=== PATIENT | male | born 1990 ===

== ENCOUNTER 2017-03-17 12:36 | Emergency (ER) | payer MEDICAID ==
[2017-03-17 12:43] VITALS: BP 132/83; PULSE 73; RESP 17; TEMP 97.8; O2SAT 98
--- NOTE | 2017-03-17 13:06 | ED PDOC ---
HPI: Back Time Seen by Provider: 03/17/17 12:44 Chief Complaint (Nursing): Back Pain Chief Complaint (Provider): Back Pain History Per: Patient History/Exam Limitations: no limitations Onset/Duration Of Symptoms: Days (x2) Additional Complaint(s): Julio Cesar Barahona, 27 year old male presents to the ED on 03/17/17 with back pain. The patient reports as he was lifting a window, he underestimated the weight of the window and injured his back 2 days prior to arrival. He states the pain has improved, but he was unable to attend work today which prompted him to visit the emergency room. He denies any difficulty breathing, no difficulty with bowel movements, no difficulty urinating, no numbness or tingling, no abdominal pain, no nausea, vomiting, or fever, and no numbness to his lower extremities. Past Medical History Reviewed: Historical Data, Nursing Documentation, Vital Signs Vital Signs: Last Vital Signs Temp 97.8 F 03/17/17 12:38 Pulse 73 03/17/17 12:38 Resp 17 03/17/17 12:38 BP 132/83 03/17/17 12:38 Pulse Ox 98 03/17/17 12:38 - Medical History PMH: No Chronic Diseases - Family History Family History: States: Unknown Family Hx - Social History Current smoker - smoking cessation education provided: Yes - Home Medications Home Medications: Ambulatory Orders Medication Instructions Recorded No Known Home Med 03/17/17 - Allergies Allergies/Adverse Reactions: Allergies Allergy/AdvReac Type Severity Reaction Status Date / Time No Known Allergies Allergy Verified 03/17/17 12:38 Review of Systems ROS Statement: Except As Marked, All Systems Reviewed And Found Negative Constitutional: Negative for: Fever Respiratory: Negative for: Shortness of Breath Gastrointestinal: Negative for: Nausea, Vomiting, Abdominal Pain Genitourinary Male: Negative for: Dysuria Musculoskeletal: Positive for: Back Pain Neurological: Negative for: Numbness Physical Exam - Reviewed Nursing Documentation Reviewed: Yes Vital Signs Reviewed: Yes - Physical Exam Appears: Positive for: Non-toxic, No Acute Distress Head Exam: Positive for: ATRAUMATIC, NORMOCEPHALIC Gastrointestinal/Abdominal: Positive for: Normal Exam, Soft. Negative for: Tenderness Back: Positive for: Normal Inspection, Vertebral Tenderness (left paravertebral tenderness; no midline tenderness), Muscle Spasm Extremity: Positive for: Normal ROM (to bilateral hips) Neurologic/Psych: Positive for: Alert, Oriented (x3). Negative for: Motor/ Sensory Deficits (neurovascular sensations intact ) - ECG O2 Sat by Pulse Oximetry: 98 (RA) Pulse Ox Interpretation: Normal Medical Decision Making Medical Decision Making: Initial Impression: When in ER, back pain was under control. Diagnosis includes but not limited to muscle spasm. Initial Plan: * Toradol 30 mg IM Stat * Treatment plan: pt improved in ED. will f./u with pmd. Discussed with patient to apply warm compress and follow up with PMD for possible MRI. Patient agreed to treatment plan and medication administered. Patient is stable for discharge. Scribe Attestation: Documented by Ruthie Melendez, acting as a scribe for Mary Parsons PA-C. Provider Scribe Attestation: All medical record entries made by the Scribe were at my direction and personally dictated by me. I have reviewed the chart and agree that the record accurately reflects my personal performance of the history, physical exam, medical decision making, and the department course for this patient. I have also personally directed, reviewed, and agree with the discharge instructions and disposition. Disposition - Clinical Impression Clinical Impression: Back strain, Back disorder - Patient ED Disposition Is Patient to be Admitted: No - Disposition Referrals: [facility] [Outside] Disposition: Routine/Home Disposition Time: 13:22 Condition: STABLE Additional Instructions: [facility]: [phone] Instructions: Muscle Spasm (ED) Forms: [facility] School/Work Excuse
== END 2017-03-17 14:22 | disposition home or self-care (01) ==
LOC: H.ER 12:36
DX: M62.830 Muscle spasm of back (principal)
CPT/HCPCS: 96372; 99282; J1885

== ENCOUNTER 2017-11-11 12:27 | Emergency (ER) | payer MEDICAID, OTHER ==
[2017-11-11 12:35] VITALS: BP 137/81; PULSE 92; RESP 16; TEMP 98; O2SAT 99
--- NOTE | 2017-11-11 14:20 | ED PDOC ---
HPI: Back Time Seen by Provider: 11/11/17 13:14 Chief Complaint (Nursing): Back Pain Chief Complaint (Provider): Back Pain History Per: Patient History/Exam Limitations: no limitations Onset/Duration Of Symptoms: Days (x5) Current Symptoms Are (Timing): Still Present Additional Complaint(s): 27 year old male with a past medical history of back pain and heroin abuse, who presents to the ED complaining of pain that radiates from his neck to his back x5 days. States the pain is sharp and worse when standing, or getting up from a sitting position. Also states he has felt similar pain many times in the past, but this pain is exacerbated. Denies recent injury. Patient is in an opiate recovery program and has taken no medication for pain. PMD: None provided Past Medical History Reviewed: Historical Data, Nursing Documentation, Vital Signs Vital Signs: Last Vital Signs Temp 98.0 F 11/11/17 12:32 Pulse 92 H 11/11/17 12:32 Resp 16 11/11/17 12:32 BP 137/81 11/11/17 12:32 Pulse Ox 99 11/11/17 12:32 - Medical History PMH: Back Problems - Surgical History Surgical History: No Surg Hx - Family History Family History: States: Unknown Family Hx - Social History Drugs: Opiates (currently in a recovery program) - Home Medications Home Medications: Ambulatory Orders Medication Instructions Recorded Cyclobenzaprine [Cyclobenzaprine 10 mg PO TID #15 tab 11/11/17 HCl] Ibuprofen [Motrin] 600 mg PO Q6 PRN #20 tab 11/11/17 - Allergies Allergies/Adverse Reactions: Allergies Allergy/AdvReac Type Severity Reaction Status Date / Time No Known Allergies Allergy Verified 11/11/17 12:32 Review of Systems ROS Statement: Except As Marked, All Systems Reviewed And Found Negative Musculoskeletal: Positive for: Back Pain Physical Exam - Reviewed Nursing Documentation Reviewed: Yes Vital Signs Reviewed: Yes - Physical Exam Appears: Positive for: Non-toxic, No Acute Distress Head Exam: Positive for: ATRAUMATIC, NORMAL INSPECTION, NORMOCEPHALIC Skin: Positive for: Normal Color, Warm, Dry. Negative for: Rash Eye Exam: Positive for: EOMI, Normal appearance, PERRL Neck: Positive for: Normal, Painless ROM, Supple Cardiovascular/Chest: Positive for: Regular Rate, Rhythm. Negative for: Murmur Respiratory: Positive for: Normal Breath Sounds. Negative for: Respiratory Distress Gastrointestinal/Abdominal: Positive for: Normal Exam, Bowel Sounds, Soft. Negative for: Tenderness Back: Positive for: Other (mild paraspinal tenderness from neck to mid back) Extremity: Positive for: Normal ROM. Negative for: Pedal Edema, Deformity Neurologic/Psych: Positive for: Alert, Oriented (x3) - ECG O2 Sat by Pulse Oximetry: 99 (RA) Pulse Ox Interpretation: Normal Medical Decision Making Medical Decision Making: Time: 13:11 Initial Impression: Acute on chronic back pain. Initial Plan: --Influenza A B --Rapid strep group A --Reevaluation Time: 14:12 Upon provider evaluation patient is medically stable, and requires no further treatment in the ED at this time. Patient will be discharged with Rx for Motrin and Cyclobenzaprine. Counseling was provided and all questions were answered regarding diagnosis and need for follow up with back specialist. There is agreement to discharge plan. Return if symptoms persist or worsen. Scribe Attestation: Documented by Hermes Pretty, acting as a scribe for Rodrigue Parker MD. Provider Scribe Attestation: All medical record entries made by the Scribe were at my direction and personally dictated by me. I have reviewed the chart and agree that the record accurately reflects my personal performance of the history, physical exam, medical decision making, and the department course for this patient. I have also personally directed, reviewed, and agree with the discharge instructions and disposition. Disposition - Clinical Impression Clinical Impression: Back pain - Patient ED Disposition Is Patient to be Admitted: No Counseled Patient/Family Regarding: Diagnosis, Need For Followup, Rx Given - Disposition Referrals: [facility] [Outside] Disposition: Routine/Home Disposition Time: 14:12 Condition: GOOD Additional Instructions: Take your medications as instructed. Follow up with your PCP in 3-5 days. Prescriptions: Cyclobenzaprine [Cyclobenzaprine HCl] 10 mg PO TID #15 tab Ibuprofen [Motrin] 600 mg PO Q6 PRN #20 tab PRN Reason: Pain, Moderate (4-7) Instructions: Back Pain (ED)
== END 2017-11-11 14:33 | disposition home or self-care (01) ==
LOC: H.ER 12:27
DX: M54.9 Dorsalgia, unspecified (principal)

== ENCOUNTER 2017-12-12 21:59 | Emergency (ER) | payer SELFPAY ==
[2017-12-12 22:14] VITALS: BP 130/74; PULSE 96; RESP 16; TEMP 98.4; O2SAT 99
--- NOTE | 2017-12-12 23:18 | ED PDOC ---
HPI: General Adult Time Seen by Provider: 12/12/17 22:15 Chief Complaint (Nursing): Anxiety Chief Complaint (Provider): Anxiety, chest pain History Per: Patient History/Exam Limitations: no limitations Onset/Duration Of Symptoms: Days, Intermittent Episodes Have you had recent travel within the past 21 days to any of the following countries: [place], [place], [place] or [place]?: No Current Symptoms Are (Timing): Better Additional Complaint(s): 27 yo male with no known medical problems presents after an anxiety attack. Pt states this morning he began feeling anxious with chest pain, fast breathing and sweaty palms. Pt states he has had similar in the past. Pt reports symptoms resolving in 30 minutes. Pt states the rest of the day he was tired and did not feel like doing much. PT reports second "attack" this evening, which also resolved. Pt states they were more severe than in the past. Pt reports smoking marijuana in the past to help but is currently in a drug program because he was arrested with marijuana 3 years ago. PT states due to insurance issues he also has not been able to see a psychiatrist. Past Medical History Reviewed: Historical Data, Nursing Documentation, Vital Signs Vital Signs: Last Vital Signs Temp 98.4 F 12/12/17 22:10 Pulse 96 H 12/12/17 22:10 Resp 16 12/12/17 22:10 BP 130/74 12/12/17 22:10 Pulse Ox 99 12/12/17 22:10 - Medical History PMH: Back Problems - Surgical History Surgical History: No Surg Hx - Family History Family History: States: Unknown Family Hx - Living Arrangements Living Arrangements: With Family - Social History Current smoker - smoking cessation education provided: No - Home Medications Home Medications: Ambulatory Orders Medication Instructions Recorded Cyclobenzaprine [Cyclobenzaprine 10 mg PO TID #15 tab 11/11/17 HCl] Ibuprofen [Motrin] 600 mg PO Q6 PRN #20 tab 11/11/17 - Allergies Allergies/Adverse Reactions: Allergies Allergy/AdvReac Type Severity Reaction Status Date / Time No Known Allergies Allergy Verified 11/11/17 12:32 Review of Systems ROS Statement: Except As Marked, All Systems Reviewed And Found Negative Constitutional: Negative for: Fever, Chills Cardiovascular: Positive for: Chest Pain, Palpitations Gastrointestinal: Negative for: Nausea, Vomiting, Abdominal Pain Neurological: Negative for: Weakness, Headache, Dizziness Psych: Positive for: Anxiety. Negative for: Psychosis, Suicidal ideation Physical Exam - Reviewed Nursing Documentation Reviewed: Yes Vital Signs Reviewed: Yes - Physical Exam Appears: Positive for: Well, Non-toxic, No Acute Distress Head Exam: Positive for: ATRAUMATIC, NORMAL INSPECTION, NORMOCEPHALIC Skin: Positive for: Normal Color, Warm, DRY Eye Exam: Positive for: Normal appearance ENT: Positive for: Normal ENT Inspection Neck: Positive for: Normal, Painless ROM Cardiovascular/Chest: Positive for: Regular Rate, Rhythm Respiratory: Positive for: CNT, Normal Breath Sounds Gastrointestinal/Abdominal: Positive for: Normal Exam, Bowel Sounds, Soft Back: Positive for: Normal Inspection Extremity: Positive for: Normal ROM Neurologic/Psych: Positive for: Alert, Oriented - ECG O2 Sat by Pulse Oximetry: 99 Medical Decision Making Medical Decision Making: Normal EKG and CXR. [facility] Crisis evaluation is not needed at current visit. Disposition - Clinical Impression Clinical Impression: Anxiety - Patient ED Disposition Is Patient to be Admitted: No Counseled Patient/Family Regarding: Diagnosis, Need For Followup - Disposition [facility] Disposition: Routine/Home Disposition Time: 23:20 Condition: STABLE Additional Instructions: Appointment: 12/25/17 11:20 am Instructions: Anxiety, Adult (DC)
--- NOTE | 2017-12-13 07:53 | RAD ---
HISTORY: chest pain, anxiety COMPARISON: No prior. TECHNIQUE: Chest PA and lateral FINDINGS: LUNGS: No active pulmonary disease. PLEURA: No significant pleural effusion identified. No pneumothorax apparent. CARDIOVASCULAR: Normal. OSSEOUS STRUCTURES: No significant abnormalities. VISUALIZED UPPER ABDOMEN: Normal. OTHER FINDINGS: None. IMPRESSION: No active disease.
--- NOTE | 2017-12-14 10:34 | CARD ---
APPROVED REPORT EKG Measurement Heart [id number] <Conclusion> Normal sinus rhythm Normal ECG
== END 2017-12-12 23:40 | disposition home or self-care (01) ==
LOC: H.ER 21:59
DX: F41.9 Anxiety disorder, unspecified (principal); R07.89 Other chest pain; F12.90 Cannabis use, unspecified, uncomplicated

== ENCOUNTER 2018-01-06 11:10 | Emergency (ER) | payer MEDICAID ==
[2018-01-06] MEDS ORDERED: Naproxen 500 MG TAB PO ONE ×2 (11:44→11:51)
[2018-01-06] MEDS ORDERED: Naproxen 500 MG TAB PO STA (11:45)
--- NOTE | 2018-01-06 11:45 | ED PDOC ---
HPI: Back Time Seen by Provider: 01/06/18 11:25 Chief Complaint (Nursing): Back Pain Chief Complaint (Provider): Low back pain for 12 hours - Similar in the past History Per: Patient History/Exam Limitations: no limitations Onset/Duration Of Symptoms: Hrs (12) Current Symptoms Are (Timing): Still Present Quality Of Discomfort: Dull, Other (Tight) Severity: Severe Pain Scale Rating Of: 10 Previous Symptoms: Back Pain Associated Symptoms: None Exacerbating Factor(s): Turning, Sitting Additional Complaint(s): 27 yo male with history of previous back pain presents with low back pain which began after moving furniture. PT states that he began having pain lower back bilateral without radiation. PT states that he did not take anything for pain at home but had some relief with warm compress. No numbness/tingling. No bladder or bowel incontinence. Past Medical History Reviewed: Historical Data, Nursing Documentation, Vital Signs Vital Signs: Last Vital Signs Temp 98.1 F 01/06/18 11:36 Pulse 80 01/06/18 11:36 Resp 16 01/06/18 11:36 BP 138/80 01/06/18 11:36 Pulse Ox 99 01/06/18 11:36 - Medical History PMH: Back Problems - Surgical History Surgical History: No Surg Hx - Family History Family History: States: Unknown Family Hx - Living Arrangements Living Arrangements: With Family - Home Medications Home Medications: Ambulatory Orders Medication Instructions Recorded Cyclobenzaprine [Cyclobenzaprine 10 mg PO TID #15 tab 11/11/17 HCl] Ibuprofen [Motrin] 600 mg PO Q6 PRN #20 tab 11/11/17 Cyclobenzaprine [Cyclobenzaprine 10 mg PO Q8H #20 tab 01/06/18 HCl] Naproxen [Naprosyn] 500 mg PO BID PRN #20 tablet 01/06/18 - Allergies Allergies/Adverse Reactions: Allergies Allergy/AdvReac Type Severity Reaction Status Date / Time No Known Allergies Allergy Verified 11/11/17 12:32 Review of Systems ROS Statement: Except As Marked, All Systems Reviewed And Found Negative Constitutional: Negative for: Fever, Chills Genitourinary Male: Negative for: Hematuria Musculoskeletal: Positive for: Back Pain Physical Exam - Reviewed Nursing Documentation Reviewed: Yes Vital Signs Reviewed: Yes - Physical Exam Appears: Positive for: Well, Non-toxic, No Acute Distress Head Exam: Positive for: ATRAUMATIC, NORMAL INSPECTION, NORMOCEPHALIC Skin: Positive for: Normal Color, Warm, DRY Eye Exam: Positive for: Normal appearance ENT: Positive for: Normal ENT Inspection Neck: Positive for: Normal, Painless ROM Cardiovascular/Chest: Positive for: Regular Rate, Rhythm Respiratory: Positive for: Normal Breath Sounds. Negative for: Accessory Muscle Use, Respiratory Distress Back: Positive for: Normal Inspection, Muscle Spasm (Bilateral ). Negative for : Vertebral Tenderness Extremity: Positive for: Normal ROM Neurologic/Psych: Positive for: Alert, Oriented - ECG O2 Sat by Pulse Oximetry: 99 Medical Decision Making Medical Decision Making: Naproxen and flexeril given in ER. Disposition - Clinical Impression Clinical Impression: Low back pain - Patient ED Disposition Is Patient to be Admitted: No Counseled Patient/Family Regarding: Diagnosis, Need For Followup, Rx Given - Disposition Referrals: [facility] [Outside] Disposition: Routine/Home Disposition Time: 11:49 Condition: GOOD Prescriptions: Cyclobenzaprine [Cyclobenzaprine HCl] 10 mg PO Q8H #20 tab Naproxen [Naprosyn] 500 mg PO BID PRN #20 tablet PRN Reason: Pain Instructions: Low Back Pain in Adults Forms: [facility] (Greek)
[2018-01-06 11:47] VITALS: BP 138/80; PULSE 80; RESP 16; TEMP 98.1; O2SAT 99
== END 2018-01-06 13:23 | disposition home or self-care (01) ==
LOC: H.ER 11:10
DX: M54.5 Low back pain (principal)

== ENCOUNTER 2018-01-09 07:24 | Emergency (ER) | payer MEDICAID ==
[2018-01-09 07:31] VITALS: RESP 16
[2018-01-09] MEDS ORDERED: Sodium Chloride 0.9% 1,000 ML IV STA (08:10)
[2018-01-09 08:26] LABS: BASO % 0.4 % (0.0-2.0); EOS # 0.1 K/uL (0.0-0.7); EOS % 1.8 % (0.0-4.0); HEMOGLOBIN 14.9 g/dL (12.0-18.0); LYMPH # 2.5 K/uL (1.0-4.3); LYMPH % 30.5 % (20.0-40.0); MEAN CELL VOLUME 88.5 fl (80.0-94.0); MEAN CORPUSCULAR HEMOGLOBIN 30.3 pg (27.0-31.0); MEAN CORPUSCULAR HGB CONC 34.3 g/dL (33.0-37.0); MONO # 1.2 K/uL (0.0-0.8); MONO % 14.9 % (0.0-10.0); NEUT # 4.3 K/uL (1.8-7.0); NEUT % 52.4 % (50.0-75.0); RBC 4.91 Mil/uL (4.40-5.90); RED CELL DISTRIBUTION WIDTH 12.8 % (11.5-14.5); WHITE BLOOD COUNT 8.1 K/uL (4.8-10.8)
[2018-01-09 08:36] LABS: ALB/GLOB RATIO 1.2 (1.0-2.1); ALBUMIN 4.3 g/dL (3.5-5.0); ALT/SGPT 54 U/L (21-72); AST/SGOT 34 U/L (17-59); BLOOD UREA NITROGEN 12 mg/dl (9-20); CALCIUM 9.4 mg/dL (8.4-10.2); GFR AFRICAN-AMERICAN > 60; GFR NON-AFRICAN AMERICAN > 60; LIPASE 49 U/L (23-300)
--- NOTE | 2018-01-09 09:21 | ED PDOC ---
HPI: Abdomen Time Seen by Provider: 01/09/18 07:38 Chief Complaint (Nursing): Abdominal Pain Chief Complaint (Provider): Abdominal Pain History Per: Patient History/Exam Limitations: no limitations Onset/Duration Of Symptoms: Days (x 1) Current Symptoms Are (Timing): Better Associated Symptoms: Fever, Chills, Nausea, Vomiting, Diarrhea Additional Complaint(s): 27 years old male presents to the emergency department today for evaluation of fever, nausea, vomiting and diarrhea for a day. Patient states he has vomited 3 times last night. He reports he has measured his temperature as 101 degrees and has experienced sweating. He denies any contact with ill people and taking any medications. Patient offers no other medical complaints. PMD: Not provided Past Medical History Reviewed: Historical Data, Nursing Documentation, Vital Signs Vital Signs: Last Vital Signs Temp 98.2 F 01/09/18 07:28 Pulse 81 01/09/18 07:28 Resp 16 01/09/18 07:28 BP 129/79 01/09/18 07:28 Pulse Ox 100 01/09/18 09:35 - Medical History PMH: No Chronic Diseases, Back Problems - Surgical History Surgical History: No Surg Hx - Family History Family History: States: Diabetes (Grandmother) - Social History Current smoker - smoking cessation education provided: Yes (Cigarettes) Alcohol: None Drugs: Denies - Immunization History Hx Tetanus Toxoid Vaccination: No Hx Influenza Vaccination: No Hx Pneumococcal Vaccination: No - Home Medications Home Medications: Ambulatory Orders Medication Instructions Recorded Cyclobenzaprine [Cyclobenzaprine 10 mg PO TID #15 tab 11/11/17 HCl] Ibuprofen [Motrin] 600 mg PO Q6 PRN #20 tab 11/11/17 Cyclobenzaprine [Cyclobenzaprine 10 mg PO Q8H #20 tab 01/06/18 HCl] Naproxen [Naprosyn] 500 mg PO BID PRN #20 tablet 01/06/18 Bismuth Subsalicylate [Pepto 2 tab PO Q3H PRN #30 ctb 01/09/18 Bismol] Ondansetron [Zofran] 4 mg PO Q8H #9 tab 01/09/18 - Allergies Allergies/Adverse Reactions: Allergies Allergy/AdvReac Type Severity Reaction Status Date / Time No Known Allergies Allergy Verified 11/11/17 12:32 Review of Systems ROS Statement: Except As Marked, All Systems Reviewed And Found Negative Constitutional: Positive for: Fever, Chills, Sweats Cardiovascular: Negative for: Chest Pain Respiratory: Negative for: Cough Gastrointestinal: Positive for: Nausea, Vomiting, Diarrhea Genitourinary Male: Negative for: Dysuria Physical Exam - Reviewed Nursing Documentation Reviewed: Yes Vital Signs Reviewed: Yes - Physical Exam Appears: Positive for: Non-toxic, No Acute Distress Head Exam: Positive for: ATRAUMATIC, NORMAL INSPECTION, NORMOCEPHALIC Skin: Positive for: Normal Color Eye Exam: Positive for: Normal appearance ENT: Positive for: Normal ENT Inspection Neck: Positive for: Normal, Supple Cardiovascular/Chest: Positive for: Regular Rate, Rhythm Respiratory: Positive for: Normal Breath Sounds Gastrointestinal/Abdominal: Positive for: Bowel Sounds (Shelia dimensioning) Back: Positive for: Other (Lower back tenderness) Extremity: Positive for: Normal ROM Neurologic/Psych: Positive for: Alert, Oriented (x 3) - Laboratory Results Result Diagrams: 01/09/18 08:19 01/09/18 08:19 - ECG O2 Sat by Pulse Oximetry: 100 (RA) Pulse Ox Interpretation: Normal Medical Decision Making Medical Decision Making: Initial Impression: abdominal pain, nausea, vomiting, diarrhea. Initial Plan: --CMP --Lipase --Urine dipstick --CBC --Na 1,000 ml IV --Pepcid 20 mg IVP --Zofran 4 mg PO Scribe Attestation: Documented by Jocelyn Mckeon acting as a scribe for Crys Scanlon MD. Provider Scribe Attestation: All medical record entries made by the Scribe were at my direction and personally dictated by me. I have reviewed the chart and agree that the record accurately reflects my personal performance of the history, physical exam, medical decision making, and the department course 9.30a - patient is feeling better. No nausea after zofran Disposition - Clinical Impression Clinical Impression: Gastroenteritis - Patient ED Disposition Is Patient to be Admitted: No Doctor Will See Patient In The: Office Counseled Patient/Family Regarding: Diagnosis, Need For Followup, Rx Given - Disposition Referrals: [facility] [Outside] [facility] [Outside] Disposition: Routine/Home Disposition Time: 09:45 Condition: IMPROVED Prescriptions: Bismuth Subsalicylate [Pepto Bismol] 2 tab PO Q3H PRN #30 ctb PRN Reason: Diarrhea Ondansetron [Zofran] 4 mg PO Q8H #9 tab Instructions: Gastroenteritis (ED) Forms: [facility] (Ukrainian) - POA Present On Arrival: None
[2018-01-09 10:34] VITALS: BP 124/74; PULSE 68; TEMP 98.4; O2SAT 98
== END 2018-01-09 10:25 | disposition home or self-care (01) ==
LOC: H.ER 07:24
DX: K52.9 Noninfective gastroenteritis and colitis, unspecified (principal)
CPT/HCPCS: 80053; 83690; 85025; 96361; 96374; 99284; J7040

== ENCOUNTER 2018-01-25 18:48 | Emergency (ER) | payer MEDICAID ==
[2018-01-25 18:59] VITALS: BP 140/81; PULSE 101; RESP 20; TEMP 98.7; O2SAT 99
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
== END 2018-01-25 20:54 | disposition home or self-care (01) ==
LOC: H.ER 18:48
DX: S09.90XA Unspecified injury of head, initial encounter (principal); S30.1XXA Contusion of abdominal wall, initial encounter; V43.52XA Car driver injured in collision with other type car in traffic accident, initial encounter; Y92.410 Unspecified street and highway as the place of occurrence of the external cause; K76.0 Fatty (change of) liver, not elsewhere classified
CPT/HCPCS: 73502; 96372; 99285; J1885